=== PATIENT | male | born 1945 | race Caucasian/White ===

== ENCOUNTER 2016-07-05 20:04 | Observation (INO) ==
[2016-07-05 22:17] LABS: Basophils % 0.2 %; Eosinophils # 0.1 K/mcL (0.0-0.6); Eosinophils % 0.6 %; Hematocrit 45.1 % (37.5-50.1); Hemoglobin 14.3 g/dL (12.9-16.9); Immature Granulocytes % 0.4 % (0-4); Lymphocytes # 1.8 K/mcL (0.6-4.6); Lymphocytes % 10.6 %; Mean Corpuscular HGB Conc 31.7 g/dL (31.6-35.5); Mean Corpuscular Hemoglobin 28.1 pg (28.0-33.3); Mean Corpuscular Volume 88.8 fL (83.0-100.0); Mean Platelet Volume 10.6 fL (9.4-12.4); Monocytes # 1.9 K/mcL (0.0-1.3); Monocytes % 11.3 %; Neutrophils # 13.2 K/mcL (1.6-8.9); Platelet Count 260 K/mcL (140-400); Red Blood Count 5.08 M/mcL (4.19-5.50); Segmented Neutrophils % 76.9 %
[2016-07-05 22:26] LABS: Calcium 9.8 mg/dL (8.6-10.8); Carbon Dioxide 27 mEq/L (19-29); Chloride 98 mEq/L (98-109); Glucose 365 mg/dL (70-99); Potassium 4.2 mEq/L (3.5-4.5); Sodium 136 mEq/L (136-145); eGFR For African Americans > 60 (> 60); eGFR For Non-African Americans 51 (> 60)
--- NOTE | 2016-07-05 22:52 | Emergency Department Note ---
Disposition Clinical Impression: Perirectal abscess Leukocytosis Qualifiers: Leukocytosis type: bandemia Qualified Code(s): D72.825 - Bandemia Disposition: Admitted As Inpatient Condition: Fair Time of Disposition: 01:41 Skin/Abscess/FB HPI Chief complaint: ED Skin/Abscess/Foreign Body Stated complaint: abscess on buttocks Time Seen by Provider: 07/05/16 20:47 Source: patient Limitations: no limitations Nursing Notes Reviewed: Yes Vital Signs Reviewed: Yes HPI Narrative: 70-year-old male presents with history of perirectal abscess with last one 3 years ago treated with antibiotics. Patient has complaints of. No abscess today with reports of increased pain with trying to have a bowel movement. Patient concerned that he will not be able to have a bowel movement with the rectal pain Home Medications Medication Instructions Recorded Confirmed Albuterol Sulfate [Proair 90 mcg IH Q4H PRN 05/17/15 07/06/16 Respiclick] Atorvastatin [Lipitor] 80 mg PO DAILY 05/17/15 07/06/16 Carvedilol [Coreg] 25 mg PO BID 05/17/15 07/06/16 Hydrochlorothiazide 25 mg PO DAILY 05/17/15 07/06/16 Insulin DETEMIR [Levemir] 55 unit SQ HS 05/17/15 07/06/16 Lisinopril [Zestril] 40 mg PO DAILY 05/17/15 07/06/16 Metformin [Glucophage] 1,000 mg PO BIDWM 05/17/15 07/06/16 HydrALAZINE 25 mg PO TID 04/17/16 07/06/16 Insulin ASPART [Novolog Flexpen] 15 unit SQ TIDWM 04/17/16 07/06/16 Rivaroxaban [Xarelto] 20 mg PO DAILY 07/06/16 07/06/16 Allergies Allergy/AdvReac Type Severity Reaction Status Date / Time No Known Allergies Allergy Verified 07/05/16 20:27 All systems ED: reviewed and negative except as stated. Constitutional: Denies: fever, chills, weakness Cardiovascular: Denies: chest pain, palpitations Respiratory: Denies: cough Gastrointestinal: Denies: abdominal pain, nausea, vomiting, diarrhea, constipation Musculoskeletal: Denies: back pain, myalgia Endocrine: Denies: fatigue Past Medical History - Past Medical History Attestation: Yes The following information was validated with the patient. Source: patient Medical history: Reports: COPD, coronary artery disease, diabetes, hypertension , other Surgical history: Reports: pacemaker/AICD Psychiatric history: Reports: anxiety - Social History Smoking Status: Former smoker Smokeless Tobacco Status: No Alcohol use: Reports: none Drug use: Reports: none Physical Exam - General Limitations: no limitations General appearance: alert - Head Head exam: other (Patient's large healed over surgical scars back the head secondary to a saw sliced the back of his head off years ago) - Eye Eye exam: Present: normal appearance, PERRL, EOMI. Absent: scleral icterus, conjunctival injection - ENT ENT exam: normal exam, normal oropharynx, mucous membranes moist - Neck Neck exam: Present: full ROM, trachea midline, other (Medical scar and neck posterior cervical region). Absent: tenderness - Chest Chest inspection: Present: normal inspection, symmetric chest wall rise. Absent : tenderness - Respiratory Respiratory exam: Present: normal lung sounds bilaterally. Absent: respiratory distress - Cardiovascular Cardiovascular exam: Present: regular rate, irregular rhythm - Abdominal Exam Abdominal exam: Present: soft, Non-Tender. Absent: tenderness, distention, guarding, rebound, rigidity - Rectal Exam Rectal exam: Present: other (Perirectal abscess in the 8:30 to 9 o'clock position in the left side of the gluteal cleft. Draining bloody purulent fluid currently nontender to palpation. Just superior to this lesion there are old areas of scarring from previous perirectal abscesses) - Extremities Exam Extremities exam: Present: full ROM, pedal edema, other (Patient is wearing compression stockings) - Expanded Lower Extremity Exam Neurovascular/Tendon exam: Absent: pulse deficit - Neurological Exam Neurological exam: Present: alert, oriented X3, CN II-XII intact - Psychiatric Psychiatric exam: Present: normal affect, normal mood - Skin Skin exam: Present: warm, dry Course - Reevaluation(s) Reevaluation #1: Patient currently not in any distress has draining perirectal abscess and is in no pain. Plan to image with CT scan to look for any complications Time: 22:50 Time: 00:01 Reevaluation #3: Abscess was incised and greeted after anesthetic anesthesia with 1% lidocaine 10 mL. Patient tolerated procedure well. 1 inch iodoform packing was placed. Patient currently has no discomfort. Time: 01:12 - Consultations Consultation #1: Dr. Carver has accepted for admission 0139hrs. Time: 01:40 Vital Signs Temperature 98.3 F 07/05/16 20:27 Pulse Rate 68 07/05/16 20:27 Respiratory Rate 20 07/05/16 20:27 Blood Pressure 153/76 07/05/16 20:27 O2 Sat by Pulse Oximetry 95 07/05/16 20:27 Temperature 98.1 F 07/06/16 06:44 Pulse Rate 72 07/06/16 06:44 Respiratory Rate 16 07/06/16 06:44 Blood Pressure 152/75 07/06/16 06:44 O2 Sat by Pulse Oximetry 95 07/06/16 06:44 Oxygen Delivery Oxygen Delivery Room Air Procedures - Abscess I/D Consent obtained: verbal consent Site: bryan-rectal Side (if applicable): left Local Anesthetic: lidocaine 1% Amount of Anesthesia Used (mL): 10 Technique: incised with #11 blade Irrigation: Yes Packing used?: iodoform Complications: pain, bleeding Skin/Abscess/Foreign Body - [facility] Narrative Medical decision making narrative: Patient presents with history of perirectal abscesses but has not had one in the past 2 years. They are previously treated with Keflex and TMP SMX. Patient presents today with another perirectal abscesses, exam abscesses draining and pain had reduced to 0. CT of the abdomen and pelvis was taken to check for any complications and showed superficial abscess. Abscess was incised and treated flushed and packed with iodoform packing. Patient is doing well. Still in no discomfort. Patient does have an elevated WBC of 17.1. Given the patient's age as area of infection patient is worrisome for possible systemic infection. Patient's currently afebrile, and has normal vital signs. Recommend admission to medicine for medical management and antibiotic therapy and observation. Cultures have been taken the abscess. Patient started on vancomycin and Zosyn. He is receiving IV hydration [address] Carver has accepted for admission 0139hrs. - Medical Records Medical records reviewed: Yes I reviewed the patient's medical records. - Lab Data Lab results reviewed: Yes I reviewed the patient's lab results. Lab results narrative: Short CBC 07/05/16 Range/Units 22:05 WBC 17.1 H (4.3-11.1) K/mcL Hgb 14.3 (12.9-16.9) g/dL Hct 45.1 (37.5-50.1) % Plt Count 260 (140-400) K/mcL Neutrophils # 13.2 H (1.6-8.9) K/mcL BMP 07/05/16 Range/Units 22:05 Sodium 136 (136-145) mEq/L Potassium 4.2 (3.5-4.5) mEq/L Chloride 98 (98-109) mEq/L Carbon Dioxide 27 (19-29) mEq/L BUN 22 (8-26) mg/dL Creatinine 1.38 H (0.72-1.25) mg/dL Glucose 365 H (70-99) mg/dL Calcium 9.8 (8.6-10.8) mg/dL Result diagrams: 07/06/16 06:27 07/06/16 06:27 Lab Results 07/05/16 07/05/16 Range/Units 22:05 22:05 WBC 17.1 H (4.3-11.1) K/mcL RBC 5.08 (4.19-5.50) M/mcL Hgb 14.3 (12.9-16.9) g/dL Hct 45.1 (37.5-50.1) % MCV 88.8 (83.0-100.0) fL MCH 28.1 (28.0-33.3) pg MCHC 31.7 (31.6-35.5) g/dL RDW 13.0 (11.5-14.5) % Plt Count 260 (140-400) K/mcL MPV 10.6 (9.4-12.4) fL Immature Gran % 0.4 (0-4) % Seg Neutrophils % 76.9 % Lymphocytes % 10.6 % Monocytes % 11.3 % Eosinophils % 0.6 % Basophils % 0.2 % Neutrophils # 13.2 H (1.6-8.9) K/mcL Lymphocytes # 1.8 (0.6-4.6) K/mcL Monocytes # 1.9 H (0.0-1.3) K/mcL Eosinophils # 0.1 (0.0-0.6) K/mcL Basophils # 0.0 (0.0-0.2) K/mcL Sodium 136 (136-145) mEq/L Potassium 4.2 (3.5-4.5) mEq/L Chloride 98 (98-109) mEq/L Carbon Dioxide 27 (19-29) mEq/L BUN 22 (8-26) mg/dL Creatinine 1.38 H (0.72-1.25) mg/dL Est GFR ( Amer) > 60 (> 60) Est GFR (Non-Af Amer) 51 L (> 60) BUN/Creatinine Ratio 16 (6-26) Glucose 365 H (70-99) mg/dL Calculated Osmolality 300 (280-300) Calcium 9.8 (8.6-10.8) mg/dL - Radiology Data Radiology results reviewed: Yes I reviewed the patient's radiology results. Abdomen/Pelvis CT 07/05/16 22:46 IMPRESSION: 1. Ovoid fluid collection in the left perineal soft tissues measuring approximately 1.4 x 3.1 x 6.5 cm. Findings are suspicious for abscess. No gross extension into the pelvis. 2. Mild circumferential wall thickening of the distal rectosigmoid colon. Findings are suspicious for colitis. Assessment for fistula is limited without oral contrast D/ / Johnny Quick MD / Johnny Quick MD Interpreting Provider: Johnny Quick MD Attestation Statement - Attestation Attestation: I personally interviewed and examined this patient and my medical decision- making was reviewed with the ED Resident Physician, Dr. Patel. I agree with the documented findings, disposition and treatment plan as described in the documentation. Pt is a 70 yo male with hx DM, who presents with rectal pain, swelling and pain with defacation. PT with hx prior bryan-rectal abscess formation, last managed for this approx 2 yrs ago. Pt here with concern for recurrence. Clinically on exam, pt with tender, fluctuant bryan-rectal abscess. No palpation of fluctuance on rectal exam. No abd pain/TTP. Remainder of exam wnl, no rash/erythema. Labs show leikocytosis, and mild hyperglycemia without acidosis. CT shows ovoid , well circumscribed abscess, bryan-rectal. Supervised Dr. Allison and Dr. Patel perform bedside I&D on abscess, pt tolerated well, cultures sent. Antibx initiated in ED. Pt hemodynamically stable throughout ED course. Will admit for ongoing debridement prn and IV anitbx, considering extent/location of abscess, hx DM with hyperglycemia. Pt accepted by hospitalist.
[2016-07-05 23:32] LABS: BUN/Creatinine Ratio 16 (6-26); Blood Urea Nitrogen 22 mg/dL (8-26); Osmolality,Calculated 300 (280-300)
[2016-07-05] MEDS ORDERED: Piperacillin/Tazobactam 3.375 GM in D5% in Water (Mini-Bag+) 100 ML IVPB ONE (23:46)
[2016-07-05] MEDS ORDERED: Vancomycin 1,250 MG in D5% in Water 250 ML IVPB ONE (23:46)
[2016-07-05] MEDS ORDERED: 0.9 % Sodium Chloride 1,000 ML IVC ONE (23:47)
[2016-07-05] MEDS ORDERED: Lidocaine 1% 20 ML MDV INFILT ONE (23:47)
[2016-07-06] MEDS ORDERED: Ketorolac 30 MG/ML VIAL IVP PRN (05:48)
[2016-07-06] MEDS ORDERED: Acetaminophen 325 MG TABLET PO PRN (05:48)
[2016-07-06] MEDS ORDERED: Naloxone 0.4 MG/ML INJ IVP PRN (05:48)
[2016-07-06] MEDS ORDERED: Ondansetron 4 MG/2 ML VIAL IVP PRN (05:48)
--- NOTE | 2016-07-06 05:48 | Internal Med History&Physical ---
<Kenn Dave - Last Filed: 07/06/16 06:38> Date of Encounter: 07/06/16 Time of Encounter: 04:15 Assessment and Plan (1) Perirectal abscess Status: Acute Patient presents with perirectal abscess, underwent incision and drainage in the ER and currently on antibiotics and not complaining of any additional discomfort. CT examination could not ascertain whether or not there is a fistula, but did show possible colitis. Patient not complaining of any pain, or difficulty with bowel movements currently. Continue Zosyn We will consult surgery regarding concern for fistula or development of fistula Nothing by mouth currently (2) Congestive heart failure Status: Acute Patient history of chronic congestive heart failure with nonischemic cardiomyopathy. Patient had pacemaker placed previously. Not currently in exacerbation Continue home medications Qualifiers: Congestive heart failure type: unspecified congestive heart failure type Congestive heart failure chronicity: chronic Qualified Code(s): I50.9 - Heart failure, unspecified (3) HLD (hyperlipidemia) Status: Chronic Continue home atorvastatin Qualifiers: Hyperlipidemia type: unspecified Qualified Code(s): E78.5 - Hyperlipidemia , unspecified (4) HTN (hypertension) Status: Chronic Patient on hydrochlorothiazide, carvedilol, hydralazine, and lisinopril at home Continue home medications Qualifiers: Hypertension type: essential hypertension Qualified Code(s): I10 - Essential (primary) hypertension (5) Insulin dependent diabetes mellitus Status: Chronic Patient nothing by mouth until further surgical evaluation Every 6 hours insulin checks with high-dose sliding scale insulin 24 unit Lamere at bedtime (6) DVT prophylaxis Status: Acute Pneumatic compression devices Internal Medicine - H&P: HPI Chief complaint: Perirectal abscess Admitted From: Home Plans for Post Hospital Care: Home History of present illness: Mr. Soto is a 70 year old male with prior medical history of multiple prior per rectal abscesses COPD, coronary artery disease, insulin-dependent diabetes mellitus type 2, hypertension, nonischemic cardiomyopathy, and pacemaker in place presents to the ER tonight because of increased swelling, pressure, and pain of a perirectal abscess. He said he has had this abscess for a couple weeks prior, but did not feel the need to come in as he was not having any discomfort or systemic symptoms. She only came in after became an issue of comfort for him. Is having mild discomfort, but denies having multiple bowel movements a time: He denies pain with bowel movements, denies changes in his bowel movements including diarrhea or constipation, denies blood or mucus in his bowel movements, denies melena. He denies ever having fever, abdominal pain , diarrhea, nausea, vomiting, chest pain, or shortness of breath. After patient admitted to the floor he refuses possible surgical consult, stating that he feels better as a discomfort after having incision and drainage in the emergency room. He states that his prior perirectal abscesses have resolved after incision and drainage a course of oral antibiotics, with the patient stating he packed and change his own dressing. Only after extensive conversation with myself and Dr. Carver does the patient agreed to stay for further evaluation and care, but there is continued concern patient might leave AGAINST MEDICAL ADVICE. Past Med Surg Social Fam HX - Past Medical History Medical history: COPD, coronary artery disease, diabetes, hypertension, other Psychiatric history: anxiety - Past Surgical History Surgical History: pacemaker/AICD - Social History Smoking Status: Former smoker Smokeless Tobacco Status: No Alcohol use: none Drug use: none - Family History Mother Hx Family Cardiac Disorders: No Hx Family Respiratory Disorders: No Hx Family Cancer: Yes (lung cancer) Hx Family GI Disorders: No Hx Family Genitourinary Disorders: No Hx Family Endocrine Disorder: Yes Hx Family Musculoskeletal Disorders: No Hx Family Neuromuscular Disorders: No Hx Family Neurologic Disorders: No Hx Family HEENT Disorders: No Hx Family Autoimmune Disorders: No Hx Family Reproductive Disorders: No Hx Family Psychosocial Disorders: No Hx Family Medical Disorders: No Internal Medicine - H&P: Meds Albuterol Sulfate [Proair Respiclick] 90 mcg IH Q4H PRN 05/17/15 [History] Atorvastatin [Lipitor] 80 mg PO DAILY 05/17/15 [History] Carvedilol [Coreg] 25 mg PO BID 05/17/15 [History] Hydrochlorothiazide 25 mg PO DAILY 05/17/15 [History] Insulin DETEMIR [Levemir] 55 unit SQ HS 05/17/15 [History] Lisinopril [Zestril] 40 mg PO DAILY 05/17/15 [History] Metformin [Glucophage] 1,000 mg PO BIDWM 05/17/15 [History] HydrALAZINE 25 mg PO TID 04/17/16 [History] Insulin ASPART [Novolog Flexpen] 15 unit SQ TIDWM 04/17/16 [History] Rivaroxaban [Xarelto] 20 mg PO DAILY 07/06/16 [History] Allergies No Known Allergies Allergy (Verified 07/05/16 20:27) - Constitutional Constitutional: no chills, no fever(s), no night sweats - EENT Eyes: no change in vision, no discharge, no pain, no photophobia Nose, mouth and throat: no dysphagia, no nasal discharge, no neck pain, no sore throat - Cardiovascular Cardiovascular ROS IM: no chest pain, no diaphoresis, no dyspnea, no lightheadedness, no palpitations, no syncope - Respiratory Respiratory: no cough, no dyspnea, no wheezing, no excessive phlegm production - Gastrointestinal Gastrointestinal: no abdominal pain, no diarrhea, no hematemesis, no hematochezia, no melena, no nausea, no vomiting Additional comments: Reports having specifically a perirectal abscess, as he has had these multiple times before - Musculoskeletal Musculoskeletal ROS IM: no numbness, no tingling - Integumentary Integumentary IM: no rash, no unusual bruising - Neurological Neurological ROS: no confusion, no convulsions, no focal weakness, no numbness, no tingling, no tremor(s) - Hematologic/Lymphatic Hematologic/Lymphatic: no easy bruising - Constitutional Vitals: Temp Pulse Resp BP Pulse Ox 98.3 F 81 18 139/77 94 L 07/06/16 04:21 07/06/16 04:21 07/06/16 04:21 07/06/16 04:21 07/06/16 04:21 Exam: General: Cooperative, pleasant, no acute distress, alert and oriented 3, answers questions appropriately Head: Normocephalic, atraumatic Eye: Conjunctiva pink, sclera anicteric, EOMI, PERRL Neck: Supple, trachea midline, mucosa moist Respiratory: No accessory muscle usage, clear to auscultation bilaterally, slight wheezes auscultated Cardiovascular: Regular rate and rhythm, S1 and S2 present, no murmurs/rubs/ gallops/clicks appreciated GI/abdominal: Nondistended, obese, protuberant, nontender, soft, normal bowel sounds, no peritoneal signs Extremities: No calf tenderness, noncyanotic, 1+ pitting pretibial edema, warm, lower extremity pulses palpable and symmetrical Neurological: Alert and oriented 3, no facial droop, no focal deficits Skin: Dry, intact, normal color Rectal: Several external hemorrhoids noted, abscess with wick drain in place in the roughly 8 to 9 o'clock position around patient anus, no gross blood observed on rectal exam, abscess was not palpated on exam, prostate not enlarged with no lumps objective Internal Med - H&P Results - Labs CBC & Chem 7: 07/05/16 22:05 07/05/16 22:05 <Vicki Carver - Last Filed: 07/07/16 02:22> Internal Medicine - H&P: HPI History of present illness: Mr. Soto is a 70 year old male All Systems PM: A 10-system review of systems was performed and is negative for pertinent findings except as documented above in the HPI. - Constitutional Vitals: Temp Pulse Resp BP Pulse Ox 98.1 F 72 16 152/75 95 07/06/16 06:44 07/06/16 06:44 07/06/16 06:44 07/06/16 06:44 07/06/16 06:44 Internal Med - H&P Results - Labs CBC & Chem 7: 07/06/16 06:27 07/06/16 06:27 Labs: Short CBC 07/06/16 Range/Units 06:27 WBC 15.9 H (4.3-11.1) K/mcL Hgb 13.0 (12.9-16.9) g/dL Hct 39.3 (37.5-50.1) % Plt Count 226 (140-400) K/mcL Neutrophils # 11.2 H (1.6-8.9) K/mcL BMP 07/06/16 06:27 Sodium 135 L Potassium 4.0 Chloride 100 Carbon Dioxide 27 BUN 19 Creatinine 1.14 Glucose 252 H Calcium 9.1 - Attending Attestation I performed history and physical examination of the patient and discussed management with the resident. I reviewed the resident note and agree with the documentation findings and plan of care. 70 Y/M with left bryan-rectal abscess underwent I&D in the ER and was given zosyn and vancomycin. He was noted to have leukocytosis and was admitted to the hospitalist service for IV antibiotics. O/E: Left bryan-rectal area packed with guage. A/P: surgical consult; continue antibiotics. Pt wanted to leave against medical advice. I have explained him that the abscess is deep and he is at risk of fistula formation and also explained the risk of worsening infection and complications. Advised evaluation by the surgeon. Pt agreed to stay for surgical evaluation.
[2016-07-06] MEDS ORDERED: Dextrose Gel 15 GM PO PRN ×2 (06:37)
[2016-07-06] MEDS ORDERED: *HR* Dextrose 50 % in Water (Syg) 50 ML SYRINGE IVP PRN (06:37)
[2016-07-06 06:47] VITALS: BP 152/75
[2016-07-06 06:54] LABS: Basophils % 0.1 %; Eosinophils # 0.1 K/mcL (0.0-0.6); Eosinophils % 0.6 %; Hematocrit 39.3 % (37.5-50.1); Immature Granulocytes % 0.3 % (0-4); Lymphocytes # 2.3 K/mcL (0.6-4.6); Lymphocytes % 14.4 %; Mean Corpuscular HGB Conc 33.1 g/dL (31.6-35.5); Mean Corpuscular Hemoglobin 29.2 pg (28.0-33.3); Mean Corpuscular Volume 88.3 fL (83.0-100.0); Mean Platelet Volume 11.1 fL (9.4-12.4); Monocytes # 2.2 K/mcL (0.0-1.3); Neutrophils # 11.2 K/mcL (1.6-8.9); Platelet Count 226 K/mcL (140-400); Red Blood Count 4.45 M/mcL (4.19-5.50); Red Cell Distribution Width 13.1 % (11.5-14.5); Segmented Neutrophils % 70.6 %
[2016-07-06 07:02] LABS: INR 1.4; Prothrombin Time 15.1 Seconds (9.4-12.1)
[2016-07-06 07:12] LABS: BUN/Creatinine Ratio 17 (6-26); Blood Urea Nitrogen 19 mg/dL (8-26); Carbon Dioxide 27 mEq/L (19-29); Chloride 100 mEq/L (98-109); Glucose 252 mg/dL (70-99); Osmolality,Calculated 291 (280-300); Sodium 135 mEq/L (136-145); eGFR For African Americans > 60 (> 60); eGFR For Non-African Americans > 60 (> 60)
[2016-07-06] MEDS ORDERED: *HR* Morphine 2 MG/ML SYRINGE IVP PRN (07:26)
[2016-07-06] MEDS ORDERED: *HR* HYDROcodone/Acet 5/325 mg TABLET PO PRN (07:26)
[2016-07-06 07:28] LABS: Calcium 9.1 mg/dL (8.6-10.8)
[2016-07-06] MEDS ORDERED: Piperacillin/Tazobactam 3.375 GM in D5% in Water (Mini-Bag+) 100 ML IVPB SCH (08:00)
[2016-07-06] MEDS ORDERED: Insulin DETEMIR 100 UNIT/ML X5UNITS SQ SCH ×2 (09:00→21:00)
[2016-07-06] MEDS ORDERED: hydrALAZINE 25 MG TABLET PO SCH (09:00)
[2016-07-06] MEDS ORDERED: hydroCHLOROthiazide 25 MG TABLET PO SCH (09:00)
[2016-07-06] MEDS ORDERED: Pantoprazole 40 MG VIAL IVP SCH (09:00)
[2016-07-06] MEDS ORDERED: Insulin LISPRO 300 UNITS/3 ML VIAL SQ SCH (12:00)
--- NOTE | 2016-07-06 15:05 | Event Note ---
Date of Encounter: 07/06/16 Time of Encounter: 07:30 Discharge note Mr Soto is a 70 yo M with past medical history of COPD, CAD, diabetes, NICMP , HTN and multiple prior bryan-rectal abscesses. He presented with swelling, pain and drainage in perirectal area. He received IV vancomycin and Zosyn x1 only. Patient declined to stay in the hospital and continued therapy including IV antibiotics and surgical evaluation, he stated that his abscess is better than prior ones and he will do just fine at home. I explained to patient and his , his diagnosis, treatment options and prognosis if leaving hospital. They verbalized understanding and decided to leave against medical advice. He declined oral antibiotics, he will call his primary care doctor and go from there.
[2016-07-06] MEDS ORDERED: *HR* Rivaroxaban 10 MG TABLET PO SCH (18:00)
== END 2016-07-06 07:42 | disposition left against medical advice (07) ==
LOC: EMEROO 20:04 → 3NENU 20:04 → SUATTDRO 07-06 01:43 → 3NENU 07-06 02:16
PROVIDERS: ADMIT Internal Medicine; ATTEND Internal Medicine

== ENCOUNTER 2019-03-25 11:57 | Observation (INO) ==
[2019-03-25 12:55] LABS: Basophils % 0.2 %; Eosinophils % 0.1 %; Hematocrit 40.9 % (37.5-50.1); Hemoglobin 14.2 g/dL (12.9-16.9); Immature Granulocytes % 0.4 % (0-4); Lymphocytes % 10.8 %; Mean Corpuscular HGB Conc 34.7 g/dL (31.6-35.5); Mean Corpuscular Hemoglobin 29.9 pg (28.0-33.3); Mean Corpuscular Volume 86.1 fL (83.0-100.0); Mean Platelet Volume 10.2 fL (9.4-12.4); Monocytes # 1.8 K/mcL (0.0-1.3); Monocytes % 9.9 %; Neutrophils # 14.6 K/mcL (1.6-8.9); Platelet Count 363 K/mcL (140-400); Red Blood Count 4.75 M/mcL (4.19-5.50); Red Cell Distribution Width 12.2 % (11.5-14.5); Segmented Neutrophils % 78.6 %; White Blood Count 18.6 K/mcL (4.3-11.1)
[2019-03-25 13:01] LABS: INR 1.2; Prothrombin Time 13.5 Seconds (9.4-12.1)
[2019-03-25 13:03] LABS: Activated Partial Thrombo Time 28.5 Seconds (26.0-36.0)
[2019-03-25 13:24] LABS: Calcium 9.3 mg/dL (8.6-10.3); Potassium 4.3 mEq/L (3.5-5.1); Troponin I 0.04 ng/mL (< 0.04)
[2019-03-25] MEDS ORDERED: 0.9 % Sodium Chloride 500 ML IVC STA (13:26)
[2019-03-25] MEDS ORDERED: Aspirin 81 MG TAB.CHEW PO STA (13:41)
[2019-03-25] MEDS ORDERED: Aspirin 81 MG TAB.CHEW PO SCH (13:45)
[2019-03-25] MEDS ORDERED: Ondansetron 4 MG/2 ML VIAL IVP PRN (15:31)
[2019-03-25] MEDS ORDERED: Naloxone 0.4 MG/ML INJ IVP PRN (15:31)
[2019-03-25] MEDS ORDERED: 0.9 % Sodium Chloride 1,000 ML IVC SCH (15:45)
[2019-03-25] MEDS ORDERED: D5% in Water 1,000 ML IVC PRN (16:06)
[2019-03-25] MEDS ORDERED: Dextrose Gel 15 GM/37.5 ML TUBE PO PRN ×2 (16:06)
[2019-03-25] MEDS ORDERED: *HR* Dextrose 50 % in Water (Syg) 50 ML SYRINGE IVP PRN (16:06)
[2019-03-25] MEDS: Insulin LISPRO 300 UNITS/3 ML VIAL SQ SCH (18:04)
[2019-03-25 20:34] LABS: Clarity,Urine Clear (Clear); Color,Urine Yellow (Yellow); Glucose,Urine (UA) >=1000 mg/dL (Normal)
[2019-03-25 20:35] LABS: Bilirubin,Urine Negative (Negative); Blood,Urine Negative (Negative); Ketones,Urine Negative (Negative); Leukocyte Esterase,Urine Negative (Negative); Nitrite,Urine Negative (Negative); PH,Urine 5.5 pH Units (5.0-8.0); Protein,Urine 30 mg/dL (Neg-Trace); Specific Gravity,Urine 1.026 (1.010-1.025); Urobilinogen,Urine Normal (Normal)
[2019-03-25] MEDS ORDERED: Insulin DETEMIR 100 UNIT/ML X5UNITS SQ SCH (21:00)
[2019-03-25] MEDS: *HR* Heparin 5,000 UNIT/ML VIAL SQ SCH (21:26)
[2019-03-25 21:30] LABS: Hyaline Casts,Urine Moderate per lpf (None-Few); Mucus,Urine Few (Few); Squamous Epithelial Cell,Urine Few per lpf (None-Few)
[2019-03-25 21:31] LABS: WBC,Urine 0-3 per hpf (0-3)
[2019-03-26 06:00] LABS: Basophils # 0.1 K/mcL (0.0-0.2); Basophils % 0.4 %; Eosinophils # 0.1 K/mcL (0.0-0.6); Eosinophils % 0.9 %; Hematocrit 41.3 % (37.5-50.1); Hemoglobin 13.5 g/dL (12.9-16.9); Immature Granulocytes % 0.3 % (0-4); Lymphocytes # 1.9 K/mcL (0.6-4.6); Lymphocytes % 14.2 %; Mean Corpuscular HGB Conc 32.7 g/dL (31.6-35.5); Mean Corpuscular Hemoglobin 29.3 pg (28.0-33.3); Mean Corpuscular Volume 89.8 fL (83.0-100.0); Mean Platelet Volume 10.4 fL (9.4-12.4); Monocytes # 1.6 K/mcL (0.0-1.3); Monocytes % 11.9 %; Neutrophils # 9.9 K/mcL (1.6-8.9); Platelet Count 333 K/mcL (140-400); Red Cell Distribution Width 12.3 % (11.5-14.5); Segmented Neutrophils % 72.3 %; White Blood Count 13.7 K/mcL (4.3-11.1)
[2019-03-26 06:20] LABS: BUN/Creatinine Ratio 30 (6-26); Blood Urea Nitrogen 40 mg/dL (8-23); Calcium 8.6 mg/dL (8.6-10.3); Carbon Dioxide 24 mEq/L (23-29); Chloride 97 mEq/L (98-107); Glucose 209 mg/dL (70-105); Osmolality,Calculated 296 (280-300); Phosphorous 3.6 mg/dL (2.7-4.5); Potassium 3.9 mEq/L (3.5-5.1); Sodium 135 mEq/L (136-145); eGFR For African Americans > 60 (> 60); eGFR For Non-African Americans 53 (> 60)
[2019-03-26] MEDS: *HR* Heparin 5,000 UNIT/ML VIAL SQ SCH (06:24)
[2019-03-26] MEDS ORDERED: Aspirin 81 MG TAB.CHEW PO SCH (09:00)
[2019-03-26] MEDS: Insulin LISPRO 300 UNITS/3 ML VIAL SQ SCH ×2 (09:31→11:36)
[2019-03-26 10:50] VITALS: BP 123/72
== END 2019-03-26 13:17 | disposition left against medical advice (07) ==
LOC: EMEROOARM 11:57 → 2ANU 11:57 → SUATTDRO 16:05 → 2ANU 17:54
PROVIDERS: ADMIT Internal Medicine; ATTEND Family Medicine

== ENCOUNTER 2020-02-05 12:00 | Observation (INO) ==
[2020-02-05] MEDS ORDERED: Piperacillin/Tazobactam 3.375 GM in 0.9 % Sodium Chloride Mini Bag 100 ML IVPB ONE (12:49)
[2020-02-05 12:58] LABS: Basophils # 0.1 K/mcL (0.0-0.2); Basophils % 0.6 %; Eosinophils # 0.5 K/mcL (0.0-0.6); Eosinophils % 4.7 %; Hematocrit 43.4 % (37.5-50.1); Hemoglobin 13.2 g/dL (12.9-16.9); Immature Granulocytes % 0.3 % (0-4); Lymphocytes # 1.6 K/mcL (0.6-4.6); Lymphocytes % 15.9 %; Mean Corpuscular HGB Conc 30.4 g/dL (31.6-35.5); Mean Corpuscular Volume 85.4 fL (83.0-100.0); Mean Platelet Volume 10.5 fL (9.4-12.4); Monocytes # 1.2 K/mcL (0.0-1.3); Monocytes % 11.6 %; Neutrophils # 6.8 K/mcL (1.6-8.9); Platelet Count 262 K/mcL (140-400); Red Blood Count 5.08 M/mcL (4.19-5.50); Segmented Neutrophils % 66.9 %; White Blood Count 10.2 K/mcL (4.3-11.1)
[2020-02-05 13:24] LABS: Alanine Aminotransferase 28 Units/L (7-52); Albumin 3.7 g/dL (3.5-5.7); Albumin/Globulin Ratio 1.2 (1.1-2.2); Alkaline Phosphatase 45 Units/L (34-104); Aspartate Amino Transferase 26 Units/L (13-39); BUN/Creatinine Ratio 18 (6-26); Bilirubin,Total 0.4 mg/dL (0.3-1.0); Blood Urea Nitrogen 19 mg/dL (8-23); Calcium 9.1 mg/dL (8.6-10.3); Carbon Dioxide 27 mEq/L (23-29); Chloride 106 mEq/L (98-107); Glucose 128 mg/dL (70-105); Osmolality,Calculated 294 (280-300); Potassium 3.8 mEq/L (3.5-5.1); Sodium 140 mEq/L (136-145); Total Protein 6.7 g/dL (6.4-8.9); eGFR For African Americans > 60 (> 60); eGFR For Non-African Americans > 60 (> 60)
[2020-02-05] MEDS ORDERED: *HR* Enoxaparin 100 MG/ML SYRINGE SQ STA (16:25)
[2020-02-05] MEDS ORDERED: Ondansetron ODT 4 MG TAB.RAPDIS SL PRN (17:50)
[2020-02-05] MEDS ORDERED: Naloxone 0.4 MG/ML INJ IVP PRN (17:50)
[2020-02-05] MEDS ORDERED: Acetaminophen 325 MG TABLET PO PRN (17:50)
[2020-02-05] MEDS ORDERED: *HR* Dextrose 50 % in Water (Vial) 50 ML VIAL IVP PRN (18:00)
[2020-02-05] MEDS ORDERED: Dextrose Gel 15 GM/37.5 ML TUBE PO PRN ×2 (18:00)
[2020-02-05] MEDS ORDERED: D5% in Water 1,000 ML IVC PRN (18:00)
[2020-02-05 18:16] LABS: C-Reactive Protein < 5 mg/L (Less than 10)
[2020-02-05] MEDS: hydrALAZINE 25 MG TABLET PO SCH (19:56)
[2020-02-05] MEDS ORDERED: Insulin LISPRO 300 UNITS/3 ML VIAL SQ SCH (21:00)
[2020-02-06] MEDS ORDERED: Vancomycin 1,250 MG/262.5 ML IV.SOLN IVPB SCH (01:00)
[2020-02-06 02:38] LABS: Basophils # 0.1 K/mcL (0.0-0.2); Basophils % 0.5 %; Eosinophils # 0.6 K/mcL (0.0-0.6); Eosinophils % 4.7 %; Hemoglobin 13.8 g/dL (12.9-16.9); Immature Granulocytes % 0.4 % (0-4); Lymphocytes # 2.5 K/mcL (0.6-4.6); Lymphocytes % 20.1 %; Mean Corpuscular HGB Conc 29.4 g/dL (31.6-35.5); Mean Corpuscular Hemoglobin 25.1 pg (28.0-33.3); Mean Corpuscular Volume 85.6 fL (83.0-100.0); Mean Platelet Volume 10.7 fL (9.4-12.4); Monocytes # 1.5 K/mcL (0.0-1.3); Monocytes % 11.5 %; Neutrophils # 7.9 K/mcL (1.6-8.9); Platelet Count 282 K/mcL (140-400); Red Blood Count 5.49 M/mcL (4.19-5.50); Red Cell Distribution Width 16.8 % (11.5-14.5); Segmented Neutrophils % 62.8 %; White Blood Count 12.6 K/mcL (4.3-11.1)
[2020-02-06 02:43] LABS: Prothrombin Time 11.7 Seconds (9.4-12.1)
[2020-02-06 02:46] LABS: Activated Partial Thrombo Time 35.7 Seconds (26.0-36.0)
[2020-02-06 03:01] LABS: BUN/Creatinine Ratio 14 (6-26); Blood Urea Nitrogen 19 mg/dL (8-23); Carbon Dioxide 26 mEq/L (23-29); Chloride 104 mEq/L (98-107); Glucose 103 mg/dL (70-105); Osmolality,Calculated 289 (280-300); Potassium 3.9 mEq/L (3.5-5.1); Sodium 138 mEq/L (136-145); eGFR For African Americans > 60 (> 60); eGFR For Non-African Americans 53 (> 60)
[2020-02-06] MEDS ORDERED: *HR* Enoxaparin 40 MG/0.4 ML SYRINGE SQ SCH (06:00)
[2020-02-06] MEDS: hydrALAZINE 25 MG TABLET PO SCH (07:23)
[2020-02-06] MEDS ORDERED: Insulin LISPRO 300 UNITS/3 ML VIAL SQ SCH (07:30)
[2020-02-06] MEDS ORDERED: carvediloL 25 MG TABLET PO SCH (08:00)
[2020-02-06] MEDS ORDERED: 0.9 % Sodium Chloride 1,000 ML IVC ONE (08:57)
[2020-02-06] MEDS ORDERED: Furosemide 20 MG TABLET PO SCH (09:00)
[2020-02-06] MEDS ORDERED: lisinopriL 20 MG TABLET PO SCH (09:00)
[2020-02-06] MEDS ORDERED: Aspirin Enteric Coated 81 MG Tablet PO SCH (09:00)
[2020-02-06] MEDS ORDERED: *HR* Enoxaparin 60 MG/0.6 ML SYRINGE SQ ONE (11:05)
[2020-02-06 11:20] VITALS: BP 156/85
[2020-02-06] MEDS ORDERED: Piperacillin/Tazobactam 3.375 GM in 0.9 % Sodium Chloride Mini Bag 100 ML IVPB SCH (21:00)
== END 2020-02-06 12:58 | disposition home or self-care (01) ==
LOC: EMEROOARM 12:00 → 3NENU 12:00
PROVIDERS: ADMIT Internal Medicine; ATTEND Internal Medicine

== ENCOUNTER 2020-02-23 08:50 | Inpatient (IN) ==
[2020-02-23] MEDS ORDERED: Ipratropium/Albuterol Neb 3 ML IH ONE (09:08)
[2020-02-23] MEDS ORDERED: methylPREDNISolone 125 MG/2 ML VIAL IVP ONE (09:08)
[2020-02-23 09:27] LABS: Basophils # 0.1 K/mcL (0.0-0.2); Basophils % 0.5 %; Eosinophils # 0.4 K/mcL (0.0-0.6); Eosinophils % 3.4 %; Hematocrit 45.8 % (37.5-50.1); Hemoglobin 13.6 g/dL (12.9-16.9); Immature Granulocytes % 0.4 % (0-4); Lymphocytes % 15.9 %; Mean Corpuscular HGB Conc 29.7 g/dL (31.6-35.5); Mean Corpuscular Hemoglobin 24.7 pg (28.0-33.3); Mean Corpuscular Volume 83.1 fL (83.0-100.0); Mean Platelet Volume 10.4 fL (9.4-12.4); Monocytes # 1.5 K/mcL (0.0-1.3); Neutrophils # 8.6 K/mcL (1.6-8.9); Platelet Count 309 K/mcL (140-400); Red Blood Count 5.51 M/mcL (4.19-5.50); Red Cell Distribution Width 15.9 % (11.5-14.5); Segmented Neutrophils % 67.8 %; White Blood Count 12.6 K/mcL (4.3-11.1)
[2020-02-23 09:31] LABS: INR 1.3; Prothrombin Time 15.3 Seconds (9.4-12.1)
[2020-02-23 09:33] LABS: Activated Partial Thrombo Time 33.7 Seconds (26.0-36.0)
[2020-02-23 09:55] LABS: Alanine Aminotransferase 29 Units/L (7-52); Albumin 4.3 g/dL (3.5-5.7); Albumin/Globulin Ratio 1.3 (1.1-2.2); Alkaline Phosphatase 53 Units/L (34-104); Aspartate Amino Transferase 28 Units/L (13-39); BUN/Creatinine Ratio 22 (6-26); Bilirubin,Indirect 0.3 mg/dL (0.0-1.0); Bilirubin,Total 0.3 mg/dL (0.3-1.0); Blood Urea Nitrogen 24 mg/dL (8-23); Calcium 9.1 mg/dL (8.6-10.3); Carbon Dioxide 26 mEq/L (23-29); Chloride 105 mEq/L (98-107); Globulin 3.4 g/dL (2.4-3.5); Glucose 155 mg/dL (70-105); Osmolality,Calculated 295 (280-300); Potassium 3.8 mEq/L (3.5-5.1); Sodium 139 mEq/L (136-145); Total Protein 7.7 g/dL (6.4-8.9); Troponin I 0.08 ng/mL (< 0.04); eGFR For African Americans > 60 (> 60); eGFR For Non-African Americans > 60 (> 60)
[2020-02-23] MEDS ORDERED: Furosemide 40 MG/4 ML VIAL IVP ONE (10:22)
[2020-02-23] MEDS ORDERED: Isovue-370 500 ML BOTTLE IVP ONE (10:23)
[2020-02-23] MEDS ORDERED: Aspirin 81 MG TAB.CHEW PO SCH (10:30)
[2020-02-23 10:35] LABS: Adenovirus Not Detected (Not Detect); Bordetella Pertussis Not Detected (Not Detect); Chlamydophila pneumoniae Not Detected (Not Detect); Coronavirus 229E Not Detected (Not Detect); Coronavirus HKU1 Not Detected (Not Detect); Coronavirus NL63 Not Detected (Not Detect); Coronavirus OC43 Not Detected (Not Detect); Human Metapneumovirus Not Detected (Not Detect); Human Rhinovirus/Enterovirus Not Detected (Not Detect); Influenza A Subtype 2009 H1 Not Detected (Not Detect); Influenza B Not Detected (Not Detect); Mycoplasma pneumoniae Not Detected (Not Detect); Parainfluenza Virus 1 Not Detected (Not Detect); Parainfluenza Virus 2 Not Detected (Not Detect); Parainfluenza Virus 3 Not Detected (Not Detect); Parainfluenza Virus 4 Not Detected (Not Detect); Respiratory Syncytial Virus Not Detected (Not Detect); SARS-CoV-2 Not Detected (Not Detect)
[2020-02-23] MEDS ORDERED: D5% in Water 1,000 ML IVC PRN (13:13)
[2020-02-23] MEDS ORDERED: *HR* Dextrose 50 % in Water (Vial) 50 ML VIAL IVP PRN (13:13)
[2020-02-23] MEDS ORDERED: Dextrose Gel 15 GM/37.5 ML TUBE PO PRN ×2 (13:13)
[2020-02-23] MEDS ORDERED: Acetaminophen 325 MG TABLET PO PRN (13:18)
[2020-02-23] MEDS ORDERED: Naloxone 0.4 MG/ML INJ IVP PRN (13:18)
[2020-02-23] MEDS ORDERED: Azithromycin 500 MG in 0.9 % Sodium Chloride 250 ML IVPB ONE (13:25)
[2020-02-23 14:25] LABS: ABG Base Excess 0 mEq/L (-2 to 3); ABG HCO3 27 mEq/L (21-27); ABG Oxygen Saturation 92 % (95-98); ABG PCO2 54 mmHg (35-45); ABG PH 7.32 pH Units (7.32-7.45); ABG PO2 70 mmHg (85-104); ABG TCO2 29 mEq/L (20-26)
[2020-02-23] MEDS ORDERED: *HR* Metoprolol 5 MG/5 ML VIAL IVP ONE (14:41)
[2020-02-23] MEDS: Apixaban 5 MG TABLET PO SCH ×2 (15:20→20:14)
[2020-02-23] MEDS: Albuterol 2.5 MG/3 ML NEBULIZER IH SCH ×2 (15:36→20:56)
[2020-02-23] MEDS: Insulin LISPRO 300 UNITS/3 ML VIAL SQ SCH (16:02)
[2020-02-23] MEDS ORDERED: Insulin LISPRO 300 UNITS/3 ML VIAL SQ SCH (21:00)
[2020-02-24] MEDS: Albuterol 2.5 MG/3 ML NEBULIZER IH SCH ×4 (00:09→11:20)
[2020-02-24 01:22] LABS: Hematocrit 40.3 % (37.5-50.1); Hemoglobin 12.5 g/dL (12.9-16.9); Mean Corpuscular Hemoglobin 25.6 pg (28.0-33.3); Mean Corpuscular Volume 82.6 fL (83.0-100.0); Mean Platelet Volume 10.2 fL (9.4-12.4); Platelet Count 284 K/mcL (140-400); Red Blood Count 4.88 M/mcL (4.19-5.50); Red Cell Distribution Width 15.6 % (11.5-14.5); White Blood Count 14.5 K/mcL (4.3-11.1)
[2020-02-24 01:43] LABS: BUN/Creatinine Ratio 24 (6-26); Blood Urea Nitrogen 30 mg/dL (8-23); Calcium 8.5 mg/dL (8.6-10.3); Carbon Dioxide 25 mEq/L (23-29); Chloride 103 mEq/L (98-107); Chol/HDL Ratio 6.3 (0-4.9); Cholesterol 241 mg/dL (< 200); Glucose 225 mg/dL (70-105); HDL Cholesterol 38 mg/dL (40-59); LDL Cholesterol,Calculated 187 mg/dL (< 100); Osmolality,Calculated 295 (280-300); Phosphorous 3.6 mg/dL (2.7-4.5); Potassium 4.1 mEq/L (3.5-5.1); Sodium 136 mEq/L (136-145); Triglycerides 78 mg/dL (< 150); eGFR For African Americans > 60 (> 60); eGFR For Non-African Americans 56 (> 60)
[2020-02-24] MEDS ORDERED: Furosemide 40 MG/4 ML VIAL IVP ONE (02:12)
[2020-02-24] MEDS ORDERED: Perflutren Lipid Microsphere 1.3 ML in 0.9 % Sodium Chloride 8.7 ML IVP PRN (07:59)
[2020-02-24 08:13] LABS: Estimated Average Glucose 223 mg/dl
[2020-02-24] MEDS: Insulin LISPRO 300 UNITS/3 ML VIAL SQ SCH ×4 (09:01→20:55)
[2020-02-24] MEDS: lisinopriL 20 MG TABLET PO SCH (09:02)
[2020-02-24] MEDS: Aspirin Enteric Coated 81 MG Tablet PO SCH (09:02)
[2020-02-24] MEDS: Apixaban 5 MG TABLET PO SCH ×2 (09:02→20:55)
[2020-02-24] MEDS: carvediloL 25 MG TABLET PO SCH ×2 (09:02→15:49)
[2020-02-24] MEDS: Insulin DETEMIR 100 UNIT/ML X5UNITS SQ SCH ×2 (11:13→20:55)
[2020-02-24] MEDS ORDERED: Azithromycin 500 MG in 0.9 % Sodium Chloride 250 ML IVPB SCH (15:00)
[2020-02-24] MEDS: Ipratropium/Albuterol Neb 3 ML IH SCH ×3 (16:12→21:41)
[2020-02-25] MEDS: Ipratropium/Albuterol Neb 3 ML IH SCH ×4 (03:34→22:22)
[2020-02-25 04:42] LABS: Hematocrit 38.8 % (37.5-50.1); Hemoglobin 11.6 g/dL (12.9-16.9); Mean Corpuscular HGB Conc 29.9 g/dL (31.6-35.5); Mean Corpuscular Hemoglobin 24.4 pg (28.0-33.3); Mean Corpuscular Volume 81.7 fL (83.0-100.0); Mean Platelet Volume 10.3 fL (9.4-12.4); Platelet Count 288 K/mcL (140-400); Red Blood Count 4.75 M/mcL (4.19-5.50); Red Cell Distribution Width 15.8 % (11.5-14.5); White Blood Count 13.7 K/mcL (4.3-11.1)
[2020-02-25 05:07] LABS: BUN/Creatinine Ratio 33 (6-26); Blood Urea Nitrogen 38 mg/dL (8-23); Calcium 8.2 mg/dL (8.6-10.3); Carbon Dioxide 25 mEq/L (23-29); Chloride 104 mEq/L (98-107); Glucose 195 mg/dL (70-105); Osmolality,Calculated 298 (280-300); Potassium 3.9 mEq/L (3.5-5.1); Sodium 137 mEq/L (136-145); eGFR For African Americans > 60 (> 60); eGFR For Non-African Americans > 60 (> 60)
[2020-02-25] MEDS ORDERED: Furosemide 40 MG/4 ML VIAL IVP SCH (09:00)
[2020-02-25] MEDS: carvediloL 25 MG TABLET PO SCH ×2 (09:14→16:42)
[2020-02-25] MEDS: Aspirin Enteric Coated 81 MG Tablet PO SCH (09:14)
[2020-02-25] MEDS: Apixaban 5 MG TABLET PO SCH ×2 (09:14→20:32)
[2020-02-25] MEDS: lisinopriL 20 MG TABLET PO SCH (09:15)
[2020-02-25] MEDS: Insulin LISPRO 300 UNITS/3 ML VIAL SQ SCH ×4 (09:15→20:32)
[2020-02-25] MEDS: Insulin DETEMIR 100 UNIT/ML X5UNITS SQ SCH ×2 (09:15→20:33)
[2020-02-25] MEDS ORDERED: Azithromycin 250 MG TABLET PO SCH (15:00)
[2020-02-25] MEDS: Furosemide 40 MG/4 ML VIAL IVP SCH (16:42)
[2020-02-26 01:18] LABS: Eosinophils % 2.4 %; Lymphocytes % 15.1 %
[2020-02-26 01:19] LABS: Basophils # 0.1 K/mcL (0.0-0.2); Basophils % 0.4 %; Eosinophils # 0.3 K/mcL (0.0-0.6); Hematocrit 39.2 % (37.5-50.1); Hemoglobin 11.7 g/dL (12.9-16.9); Immature Granulocytes % 0.4 % (0-4); Lymphocytes # 1.7 K/mcL (0.6-4.6); Mean Corpuscular HGB Conc 29.8 g/dL (31.6-35.5); Mean Corpuscular Hemoglobin 24.8 pg (28.0-33.3); Mean Corpuscular Volume 83.2 fL (83.0-100.0); Monocytes # 1.7 K/mcL (0.0-1.3); Monocytes % 14.5 %; Neutrophils # 7.7 K/mcL (1.6-8.9); Platelet Count 286 K/mcL (140-400); Red Blood Count 4.71 M/mcL (4.19-5.50); Red Cell Distribution Width 15.8 % (11.5-14.5); Segmented Neutrophils % 67.2 %; White Blood Count 11.4 K/mcL (4.3-11.1)
[2020-02-26 01:35] LABS: BUN/Creatinine Ratio 31 (6-26); Blood Urea Nitrogen 38 mg/dL (8-23); Calcium 8.6 mg/dL (8.6-10.3); Carbon Dioxide 29 mEq/L (23-29); Chloride 102 mEq/L (98-107); Glucose 186 mg/dL (70-105); Osmolality,Calculated 302 (280-300); Potassium 3.8 mEq/L (3.5-5.1); Sodium 139 mEq/L (136-145); eGFR For African Americans > 60 (> 60); eGFR For Non-African Americans 57 (> 60)
[2020-02-26] MEDS: Ipratropium/Albuterol Neb 3 ML IH SCH ×2 (04:18→10:01)
[2020-02-26] MEDS: Insulin LISPRO 300 UNITS/3 ML VIAL SQ SCH ×2 (08:00→11:30)
[2020-02-26] MEDS: carvediloL 25 MG TABLET PO SCH (08:05)
[2020-02-26] MEDS: Furosemide 40 MG/4 ML VIAL IVP SCH (08:05)
[2020-02-26] MEDS: lisinopriL 20 MG TABLET PO SCH (08:06)
[2020-02-26] MEDS: Apixaban 5 MG TABLET PO SCH (08:06)
[2020-02-26] MEDS: Aspirin Enteric Coated 81 MG Tablet PO SCH (08:06)
[2020-02-26] MEDS: Insulin DETEMIR 100 UNIT/ML X5UNITS SQ SCH (08:06)
[2020-02-26 11:13] VITALS: BP 154/83
== END 2020-02-26 12:56 | disposition home or self-care (01) | DRG 292 ==
LOC: EMEROOARM 08:50 → 2ANU 08:50 → SUATTDRO 02-25 12:24
PROVIDERS: ADMIT Family Medicine; ATTEND Internal Medicine